=== PATIENT | female | born 1990 | race African-American/Black ===

== ENCOUNTER 2021-06-22 05:41 | Emergency (ER) | payer OTHER, MEDICAID ==
[~2021-06-22] VITALS: Ht 167.6 cm; Wt 96.0 kg
[2021-06-22] MEDS ORDERED: FAMOTIDINE 20MG/2ML VIAL IV ONE (06:15)
[2021-06-22] MEDS ORDERED: EPINEPHRINE 1:1000 1 MG/ML AMP IM ONE (06:15)
[2021-06-22] MEDS ORDERED: METHYLPREDNISOLONE SOD SUCC 125 MG/2 ML VIAL IV ONE (06:15)
[2021-06-22] MEDS ORDERED: DIPH25CA83 PO (08:44)
[2021-06-22] MEDS ORDERED: P50 PO (08:44)
[2021-06-22] MEDS ORDERED: EPIN0.3P3 IM (08:44)
[2021-06-22 09:03] VITALS: BP 132/78
== END 2021-06-22 09:21 | disposition home or self-care (01) ==
LOC: ER 05:41
DX: T78.1XXA Other adverse food reactions, not elsewhere classified, initial encounter (principal); R22.0 Localized swelling, mass and lump, head; X58.XXXA Exposure to other specified factors, initial encounter; Z91.010 Allergy to peanuts; R03.0 Elevated blood-pressure reading, without diagnosis of hypertension
CPT/HCPCS: 81025; 96372; 96374; 96375; 99284; J2930; J3490